=== PATIENT | male | born 1950 | race African-American/Black ===

== ENCOUNTER 2020-11-10 15:11 | Inpatient (IN) | payer OTHER, MEDICARE ==
[~2020-11-10] VITALS: Ht 182.9 cm; Wt 88.5 kg
[2020-11-10] MEDS ORDERED: ACETAMINOPHEN 325MG TABLET PO STA ×2 (15:38)
[2020-11-10] MEDS ORDERED: SODIUM CHLORIDE 0.9% 1000ML BAG (SEPSIS BOLUS) IV ONE (15:45)
[2020-11-10] MEDS ORDERED: AZITHROMYCIN 500 MG in DEXT 5% WATER 250 ML IV ONE (15:45)
[2020-11-10] MEDS ORDERED: CEFTRIAXONE 1 G PREMIX 50 ML IV ONE (15:45)
[2020-11-10 15:59] LABS: MEAN CORPUSCULAR HEMOGLOBIN 31.4 pg (28.0-32.0); MEAN CORPUSCULAR VOLUME 92.6 fL (80.0-94.0); MEAN PLATELET VOLUME 10.9 fl (7.4-10.4); RED BLOOD CELL COUNT 2.03 mill/uL (4.7-6.1); RED CELL DISTRIBUTION WIDTH 19.1 % (11.6-14.6)
[2020-11-10 16:04] LABS: CHLORIDE 108 mEq/L (98-107)
[2020-11-10 16:09] LABS: HEMATOCRIT. 18.8 % (42.0-52.0); HEMOGLOBIN. 6.4 g/dL (14.0-18.0); PLATELET 9 x1000/uL (130-400)
[2020-11-10 16:13] LABS: CREATINE KINASE 520 IU/L (39-308)
[2020-11-10 16:44] LABS: D-DIMER 8.01 mg/L FEU (<0.50); INR 1.4; PROTHROMBIN TIME 15.1 sec (9.6-11.0)
[2020-11-10 16:47] LABS: C REACTIVE PROTEIN QUANT > 190.0 mg/L (0.0-3.0)
[2020-11-10 17:09] LABS: PLATELET ESTIMATE MARKEDLY DECREASED
[2020-11-10] MEDS ORDERED: PHENYLEPHRINE 50 MG in DEXT 5% WATER 245 ML IV PRN (17:15)
[2020-11-10] MEDS ORDERED: DILTIAZEM HCL 5MG/ML 5ML VIAL IV ONE (17:15)
[2020-11-10 17:29] LABS: BG BASE EXCESS -6.3 mmol/L (-2.0-2.0); BG CARBOXYHEMOGLOBIN 0.8 % (0.5-1.5); BG DEOXYHEMOGLOBIN 1.1 % (0.0-5.0); BG FRACTION INSPIRED OXYGEN 100; BG HCO3 ACT 16.5 mmol/L (22.0-26.0); BG METHEMOGLOBIN 0.5 % (0.0-1.5); BG OXYGEN SATURATION 98.9 % (92.0-98.5); BG OXYHEMOGLOBIN 97.6 % (94.0-97.0); BG PCO2 22.1 mmHg (35.0-45.0); BG PH 7.492 (7.350-7.450); BG PO2 176.8 mmHg (75.0-100.0); BG SAMPLE SITE RIGHT RADIAL; BG TOTAL HEMOGLOBIN 5.6 g/dL (12.0-18.0); BG VENT MODE HIGH FLOW
[2020-11-10] MEDS ORDERED: DILTIAZEM HCL 125 MG in DEXT 5% WATER 100 ML IV ONE (17:45)
[2020-11-10] MEDS ORDERED: DILTIAZEM HCL 125 MG in DEXT 5% WATER 100 ML IV NR (18:00)
[2020-11-10 18:44] LABS: CLARITY URINE CLOUDY (CLEAR); COLOR URINE DARK YELLOW (YELLOW); KETONES URINE TRACE (NEGATIVE); LEUKOCYTE ESTERASE URINE NEGATIVE (NEGATIVE); NITRITE URINE NEGATIVE (NEGATIVE); OCCULT BLOOD URINE 3+ (NEGATIVE); PROTEIN URINE 3+ (NEGATIVE); SPECIFIC GRAVITY URINE 1.025 (1.005-1.030)
[2020-11-10] MEDS ORDERED: DEXAMETHASONE 4MG/ML 1ML VIAL IV ONE (19:15)
[2020-11-10] MEDS ORDERED: MORPHINE SULFATE 4 MG/ML CPJ (NOT FOR IM USE) IV ONE (20:00)
[2020-11-10] MEDS ORDERED: IPRATROPIUM/ALBUTEROL 0.5-3(2.5)MG/3ML NEB NEB PRN (22:00)
[2020-11-10] MEDS ORDERED: MAGNESIUM/ALUMINUM HYDROXIDE/SIMETHICONE 30ML UDC PO PRN (22:00)
[2020-11-10] MEDS ORDERED: MORPHINE SULFATE 2 MG/ML CPJ (NOT FOR IM USE) IV PRN (22:00)
[2020-11-10] MEDS ORDERED: ONDANSETRON HCL 4MG/2ML INJ IV PRN (22:00)
[2020-11-10] MEDS ORDERED: ACETAMINOPHEN 325MG TABLET PO PRN (22:00)
[2020-11-10] MEDS ORDERED: DOCUSATE SODIUM 100MG CAPSULE PO PRN (22:00)
[2020-11-10] MEDS ORDERED: DIPHENHYDRAMINE 50MG/ML VIAL IV PRN (22:00)
[2020-11-10] MEDS ORDERED: GUAIFENESIN 200MG/10ML SUGAR FREE UDC PO PRN (22:00)
[2020-11-10] MEDS ORDERED: CLONIDINE 0.1MG TABLET PO PRN (22:00)
[2020-11-10] MEDS ORDERED: HYDROCODONE/ACETAMINOPHEN 5/325MG TABLET PO PRN (22:00)
[2020-11-10] MEDS ORDERED: NA PHOS,M-B/NA PHOS,DI-BA ENEMA 118ML PR PRN (22:00)
[2020-11-10] MEDS ORDERED: NALOXONE HCL 0.4MG/ML VIAL IV PRN (22:00)
[2020-11-10] MEDS ORDERED: IOHEXOL-350 100 ML BOTTLE ONE (23:27)
[2020-11-11] VITALS (35 sets, daily range): BP systolic 60–124; BP diastolic 49–75
[2020-11-11 00:06] LABS: CHLORIDE 111 mEq/L (98-107)
[2020-11-11] MEDS: DEXT 5%/0.45% NACL 1000ML 1,000 ML IV SCH ×2 (02:59→14:40)
[2020-11-11 06:12] LABS: MEAN CORPUSCULAR HEMOGLOBIN 31.5 pg (28.0-32.0); MEAN CORPUSCULAR VOLUME 91.4 fL (80.0-94.0); MEAN PLATELET VOLUME 11.8 fl (7.4-10.4); RED BLOOD CELL COUNT 1.83 mill/uL (4.7-6.1); RED CELL DISTRIBUTION WIDTH 19.1 % (11.6-14.6)
[2020-11-11 06:19] LABS: CHLORIDE 109 mEq/L (98-107)
[2020-11-11 06:28] LABS: LDL CHOLESTEROL 29 mg/dL (5-100)
[2020-11-11 06:29] LABS: HDL CHOLESTEROL 24 mg/dL (40-59); T4 FREE 1.22 ng/dL (0.76-1.46)
[2020-11-11 06:42] LABS: HEMATOCRIT. 16.7 % (42.0-52.0); HEMOGLOBIN. 5.7 g/dL (14.0-18.0); PLATELET 6 x1000/uL (130-400)
[2020-11-11] MEDS ORDERED: PHENYLEPHRINE 50 MG in DEXT 5% WATER 245 ML IV STA (07:48)
[2020-11-11] MEDS: AMIODARONE HCL 900 MG in DEXT 5% WATER 500 ML IV SCH (08:20)
[2020-11-11] MEDS: PHENYLEPHRINE 50 MG in DEXTROSE 5% WATER 250 ML IV PRN (08:20)
[2020-11-11] MEDS ORDERED: GUAIFENESIN-DM 200MG-20MG/10ML UDC PO PRN (12:45)
[2020-11-11] MEDS: IPRATROPIUM BROMIDE (0.02%) 0.5MG/2.5ML NEB HHN SCH ×2 (13:00→20:54)
[2020-11-11] MEDS ORDERED: SODIUM CHLORIDE 10% FOR INH 15ML VIAL NEB INH NR (13:30)
[2020-11-11 16:36] LABS: PLATELET ESTIMATE MARKEDLY DECREASED
[2020-11-11 18:42] LABS: HEMATOCRIT 22.3 % (42.0-52.0); HEMOGLOBIN 7.7 g/dL (14.0-18.0)
[2020-11-11] MEDS: AZITHROMYCIN 500 MG in DEXT 5% WATER 250 ML IV SCH (18:45)
[2020-11-11 18:47] LABS: BG CARBOXYHEMOGLOBIN 0.3 % (0.5-1.5); BG FRACTION INSPIRED OXYGEN 44; BG HCO3 ACT 19.7 mmol/L (22.0-26.0); BG METHEMOGLOBIN 0.5 % (0.0-1.5); BG OXYGEN SATURATION 91.9 % (92.0-98.5); BG OXYHEMOGLOBIN 91.2 % (94.0-97.0); BG PCO2 26.9 mmHg (35.0-45.0); BG PH 7.483 (7.350-7.450); BG PO2 63.8 mmHg (75.0-100.0); BG SAMPLE SITE RIGHT BRACHIAL; BG TOTAL HEMOGLOBIN 8.5 g/dL (12.0-18.0); BG VENT MODE NASAL CANNULA
[2020-11-11 18:57] LABS: CREATINE KINASE MB FRACTION 4.7 ng/mL (0.5-3.6)
[2020-11-11 19:47] LABS: HEPATITIS B SURFACE ANTIGEN NEGATIVE
[2020-11-11] MEDS: MORPHINE SULFATE 4 MG/ML CPJ (NOT FOR IM USE) IV PRN (19:47)
[2020-11-12] VITALS (61 sets, daily range): BP systolic 95–174; BP diastolic 48–104
[2020-11-12] MEDS: IPRATROPIUM BROMIDE (0.02%) 0.5MG/2.5ML NEB HHN SCH ×4 (02:36→21:14)
[2020-11-12] MEDS: AMIODARONE HCL 900 MG in DEXT 5% WATER 500 ML IV SCH (05:34)
[2020-11-12 07:27] LABS: CREATINE KINASE MB FRACTION 1.9 ng/mL (0.5-3.6)
[2020-11-12 07:44] LABS: CHLORIDE 109 mEq/L (98-107)
[2020-11-12] MEDS: MORPHINE SULFATE 4 MG/ML CPJ (NOT FOR IM USE) IV PRN (07:48)
[2020-11-12 07:50] LABS: HEMATOCRIT. 22.2 % (42.0-52.0); HEMOGLOBIN. 7.8 g/dL (14.0-18.0); MEAN CORPUSCULAR HEMOGLOBIN 31.8 pg (28.0-32.0); MEAN PLATELET VOLUME 10.6 fl (7.4-10.4); RED BLOOD CELL COUNT 2.44 mill/uL (4.7-6.1); RED CELL DISTRIBUTION WIDTH 16.1 % (11.6-14.6)
[2020-11-12 07:54] LABS: PLATELET 7 x1000/uL (130-400)
[2020-11-12] MEDS ORDERED: AMIODARONE HCL 900 MG in DEXT 5% WATER 482 ML IV SCH (10:00)
[2020-11-12] MEDS: DEXT 5%/0.45% NACL 1000ML 1,000 ML IV SCH ×2 (10:24→23:28)
[2020-11-12] MEDS: AZITHROMYCIN 500 MG in DEXT 5% WATER 250 ML IV SCH (15:12)
[2020-11-12 16:16] LABS: PLATELET ESTIMATE MARKEDLY DECREASED
[2020-11-12] MEDS: LORAZEPAM 2MG/ML CPJ IV PRN (23:24)
[2020-11-13] VITALS (25 sets, daily range): BP systolic 58–129; BP diastolic 21–93
[2020-11-13 00:13] LABS: BG BASE EXCESS -2.9 mmol/L (-2.0-2.0); BG CARBOXYHEMOGLOBIN 1.1 % (0.5-1.5); BG DEOXYHEMOGLOBIN 26.3 % (0.0-5.0); BG FRACTION INSPIRED OXYGEN 40; BG HCO3 ACT 20.9 mmol/L (22.0-26.0); BG METHEMOGLOBIN 0.4 % (0.0-1.5); BG OXYGEN SATURATION 73.3 % (92.0-98.5); BG OXYHEMOGLOBIN 72.2 % (94.0-97.0); BG PCO2 31.8 mmHg (35.0-45.0); BG PH 7.436 (7.350-7.450); BG PO2 41.7 mmHg (75.0-100.0); BG SAMPLE SITE LEFT RADIAL; BG TOTAL HEMOGLOBIN 7.4 g/dL (12.0-18.0); BG VENT MODE NASAL CANNULA
[2020-11-13] MEDS: IPRATROPIUM BROMIDE (0.02%) 0.5MG/2.5ML NEB HHN SCH ×4 (01:44→17:23)
[2020-11-13] MEDS ORDERED: DIGOXIN 500MCG/2ML AMP IV SCH ×3 (02:15→08:45)
[2020-11-13 04:19] LABS: CHLORIDE 110 mEq/L (98-107)
[2020-11-13 04:27] LABS: HEMATOCRIT. 22.9 % (42.0-52.0); HEMOGLOBIN. 7.7 g/dL (14.0-18.0); MEAN CORPUSCULAR HEMOGLOBIN 31.9 pg (28.0-32.0); MEAN CORPUSCULAR VOLUME 95.1 fL (80.0-94.0); MEAN PLATELET VOLUME 12.3 fl (7.4-10.4); RED BLOOD CELL COUNT 2.41 mill/uL (4.7-6.1); RED CELL DISTRIBUTION WIDTH 17.3 % (11.6-14.6)
[2020-11-13] MEDS ORDERED: NALOXONE HCL 1 MG/ML 2ML VIAL IV ONE (04:30)
[2020-11-13] MEDS ORDERED: FLUMAZENIL 0.1 MG/ML 5ML VIAL IV ONE (04:30)
[2020-11-13 04:46] LABS: BG BASE EXCESS -2.3 mmol/L (-2.0-2.0); BG CARBOXYHEMOGLOBIN 0.7 % (0.5-1.5); BG DEOXYHEMOGLOBIN 16.6 % (0.0-5.0); BG FRACTION INSPIRED OXYGEN 100; BG HCO3 ACT 21.8 mmol/L (22.0-26.0); BG METHEMOGLOBIN 0.2 % (0.0-1.5); BG OXYGEN SATURATION 83.2 % (92.0-98.5); BG OXYHEMOGLOBIN 82.5 % (94.0-97.0); BG PCO2 34.4 mmHg (35.0-45.0); BG PH 7.419 (7.350-7.450); BG PO2 50.7 mmHg (75.0-100.0); BG SAMPLE SITE RIGHT RADIAL; BG TOTAL HEMOGLOBIN 8.9 g/dL (12.0-18.0); BG VENT MODE MASK - NRB
[2020-11-13 04:58] LABS: PLATELET 8 x1000/uL (130-400)
[2020-11-13] MEDS ORDERED: VECURONIUM BROMIDE 10 MG/VIAL IV ONE (08:31)
[2020-11-13] MEDS ORDERED: ETOMIDATE 2MG/ML 10ML VIAL IV ONE (08:31)
[2020-11-13] MEDS: LORAZEPAM 2MG/ML CPJ IV PRN (08:52)
[2020-11-13 10:44] LABS: BG BASE EXCESS -1.8 mmol/L (-2.0-2.0); BG CARBOXYHEMOGLOBIN 0.3 % (0.5-1.5); BG DEOXYHEMOGLOBIN 1.4 % (0.0-5.0); BG FRACTION INSPIRED OXYGEN 100; BG HCO3 ACT 20.9 mmol/L (22.0-26.0); BG METHEMOGLOBIN 0.2 % (0.0-1.5); BG OXYGEN SATURATION 98.6 % (92.0-98.5); BG OXYHEMOGLOBIN 98.1 % (94.0-97.0); BG PCO2 27.7 mmHg (35.0-45.0); BG PH 7.496 (7.350-7.450); BG PO2 160.2 mmHg (75.0-100.0); BG SAMPLE SITE RIGHT RADIAL; BG TOTAL HEMOGLOBIN 7.9 g/dL (12.0-18.0); BG TOTAL RESPIRATORY RATE 48 b/min; BG VENT MODE MASK - BIPAP
[2020-11-13 13:08] LABS: PLATELET ESTIMATE MARKEDLY DECREASED
[2020-11-13] MEDS ORDERED: ACETAMINOPHEN 650MG SUPP PR PRN (13:30)
[2020-11-13] MEDS ORDERED: PROPOFOL 10MG/ML 100ML 100 ML IV PRN (15:45)
[2020-11-13] MEDS ORDERED: FENTANYL CITRATE/PF 2,500 MCG in SODIUM CHLORIDE 0.9% 200 ML IV PRN (15:45)
[2020-11-13] MEDS ORDERED: VANCOMYCIN 1,750 MG in DEXT 5% WATER 500 ML IV NR (16:30)
[2020-11-13 16:34] LABS: BG BASE EXCESS -9.6 mmol/L (-2.0-2.0); BG CARBOXYHEMOGLOBIN 0.4 % (0.5-1.5); BG FRACTION INSPIRED OXYGEN 100; BG HCO3 ACT 17.1 mmol/L (22.0-26.0); BG METHEMOGLOBIN 0.6 % (0.0-1.5); BG PCO2 41.9 mmHg (35.0-45.0); BG PH 7.228 (7.350-7.450); BG PO2 282.6 mmHg (75.0-100.0); BG SAMPLE SITE RIGHT RADIAL; BG TOTAL HEMOGLOBIN 6.1 g/dL (12.0-18.0); BG VENT MODE VENT - AC
[2020-11-13] MEDS ORDERED: SODIUM BICARBONATE 8.4% 1 MEQ/ML 50ML SYR IV NR (17:00)
[2020-11-13] MEDS ORDERED: DOPAMINE 800 MG IV ONE (17:19)
[2020-11-13] MEDS ORDERED: DOPAMINE 400MG/250ML PREMIX 250 ML IV ONE (17:20)
[2020-11-13] MEDS: DOPAMINE 400MG/250ML PREMIX 250 ML IV PRN ×2 (17:27→23:04)
[2020-11-13 19:03] LABS: HEMOGLOBIN 5.6 g/dL (14.0-18.0)
[2020-11-13 19:06] LABS: INR 1.4; PROTHROMBIN TIME 14.6 sec (9.6-11.0)
[2020-11-13] MEDS: DEXT 5%/0.45% NACL 1000ML 1,000 ML IV SCH (19:51)
[2020-11-13] MEDS: AZITHROMYCIN 500 MG in DEXT 5% WATER 250 ML IV SCH (20:22)
[2020-11-13] MEDS: MEROPENEM 1,000 MG in SODIUM CHLORIDE 0.9% 100 ML IV SCH ×2 (20:23→23:35)
[2020-11-13] MEDS: PHENYLEPHRINE 50 MG in DEXTROSE 5% WATER 250 ML IV PRN (21:18)
[2020-11-13] MEDS: NOREPINEPHRINE 32 MG in DEXT 5% WATER 218 ML IV PRN (23:59)
[2020-11-14] VITALS (36 sets, daily range): BP systolic 19–169; BP diastolic 8–76
[2020-11-14] MEDS ORDERED: SODIUM BICARBONATE 150 MEQ in DEXTROSE 5% WATER 1,000 ML IV SCH (00:20)
[2020-11-14 00:40] LABS: BG BASE EXCESS -22.2 mmol/L (-2.0-2.0); BG CARBOXYHEMOGLOBIN 0.3 % (0.5-1.5); BG FRACTION INSPIRED OXYGEN 100; BG HCO3 ACT 9.3 mmol/L (22.0-26.0); BG OXYGEN SATURATION 58.5 % (92.0-98.5); BG OXYHEMOGLOBIN 57.7 % (94.0-97.0); BG PCO2 52.4 mmHg (35.0-45.0); BG PH 6.866 (7.350-7.450); BG PO2 45.8 mmHg (75.0-100.0); BG SAMPLE SITE LEFT BRACHIAL; BG VENT MODE VENT - AC
[2020-11-14] MEDS ORDERED: SODIUM BICARBONATE 8.4% 1 MEQ/ML 50ML SYR IV ONE ×3 (01:06→08:48)
[2020-11-14] MEDS ORDERED: SODIUM BICARBONATE 8.4% 1 MEQ/ML 50ML SYR IV NR ×2 (01:15→10:30)
[2020-11-14] MEDS: IPRATROPIUM BROMIDE (0.02%) 0.5MG/2.5ML NEB HHN SCH ×2 (01:17→08:55)
[2020-11-14] MEDS: VASOPRESSIN 20 UNIT in SODIUM CHLORIDE 0.9% 99 ML IV PRN ×2 (01:33→08:44)
[2020-11-14 01:39] LABS: MEAN CORPUSCULAR VOLUME 101.7 fL (80.0-94.0); MEAN PLATELET VOLUME 7.6 fl (7.4-10.4); RED BLOOD CELL COUNT 1.86 mill/uL (4.7-6.1); RED CELL DISTRIBUTION WIDTH 16.1 % (11.6-14.6)
[2020-11-14 01:42] LABS: HEMATOCRIT. 18.9 % (42.0-52.0); HEMOGLOBIN. 5.9 g/dL (14.0-18.0)
[2020-11-14 01:43] LABS: PLATELET 18 x1000/uL (130-400)
[2020-11-14] MEDS: DOPAMINE 400MG/250ML PREMIX 250 ML IV PRN ×3 (01:47→09:13)
[2020-11-14] MEDS: PHENYLEPHRINE 50 MG in DEXTROSE 5% WATER 250 ML IV PRN ×2 (03:47→09:45)
[2020-11-14] MEDS ORDERED: VANCOMYCIN 1 G PREMIX 200 ML IV SCH (04:00)
[2020-11-14 06:00] LABS: HEMATOCRIT. 26.1 % (42.0-52.0); HEMOGLOBIN. 7.6 g/dL (14.0-18.0); MEAN CORPUSCULAR HEMOGLOBIN 31.2 pg (28.0-32.0); MEAN CORPUSCULAR VOLUME 106.5 fL (80.0-94.0); MEAN PLATELET VOLUME 7.6 fl (7.4-10.4); RED BLOOD CELL COUNT 2.45 mill/uL (4.7-6.1); RED CELL DISTRIBUTION WIDTH 16.8 % (11.6-14.6)
[2020-11-14 06:38] LABS: PLATELET 14 x1000/uL (130-400)
[2020-11-14] MEDS: NOREPINEPHRINE 32 MG in DEXT 5% WATER 218 ML IV PRN (07:00)
[2020-11-14 07:59] LABS: ATYPICAL LYMPHOCYTES 1; NUCLEATED RED BLOOD CELLS 1 /100 WBC; PLATELET ESTIMATE MARKEDLY DECREASED
[2020-11-14] MEDS ORDERED: SODIUM POLYSTYRENE SULFONATE 15 G/60 ML BOT PO SCH (08:45)
[2020-11-14] MEDS ORDERED: CALCIUM GLUCONATE 1GM PREMIX 50 ML IV ONE (08:45)
[2020-11-14] MEDS ORDERED: INSULIN REGULAR (HUMULIN R) 300UNITS/3ML VIAL IV ONE (08:45)
[2020-11-14] MEDS ORDERED: DEXTROSE 50% WATER 50ML SYRINGE IV ONE (08:45)
[2020-11-14] MEDS: DEXT 5%/0.45% NACL 1000ML 1,000 ML IV SCH (08:48)
[2020-11-14] MEDS ORDERED: EPINEPHRINE 0.1MG/ML (1:10,000) 10ML SYR ONE (08:48)
[2020-11-14] MEDS ORDERED: ATROPINE SULFATE 1MG/10ML SYR ONE (08:48)
[2020-11-14] MEDS ORDERED: CALCIUM CHLORIDE 1GM/10ML SYR IV ONE (08:48)
[2020-11-14] MEDS ORDERED: EPINEPHRINE 10 MG in SODIUM CHLORIDE 0.9% 240 ML IV PRN (09:30)
[2020-11-14] MEDS: MEROPENEM 1,000 MG in SODIUM CHLORIDE 0.9% 100 ML IV SCH (09:36)
[2020-11-14 09:40] LABS: BG BASE EXCESS -21.7 mmol/L (-2.0-2.0); BG CARBOXYHEMOGLOBIN 0.3 % (0.5-1.5); BG DEOXYHEMOGLOBIN 4.6 % (0.0-5.0); BG FRACTION INSPIRED OXYGEN 100; BG HCO3 ACT 8.3 mmol/L (22.0-26.0); BG METHEMOGLOBIN 0.8 % (0.0-1.5); BG OXYGEN SATURATION 95.3 % (92.0-98.5); BG OXYHEMOGLOBIN 94.3 % (94.0-97.0); BG PCO2 37.1 mmHg (35.0-45.0); BG PH 6.969 (7.350-7.450); BG PO2 113.8 mmHg (75.0-100.0); BG SAMPLE SITE ALINE; BG TOTAL HEMOGLOBIN 6.9 g/dL (12.0-18.0); BG VENT MODE VENT - AC
[2020-11-14] MEDS ORDERED: HYDROCORTISONE SOD SUCCINATE 100 MG/2 ML VIAL IV NR (09:45)
[2020-11-14] MEDS ORDERED: LACTATED RINGERS 500 ML IV ONE (10:00)
[2020-11-14 10:47] LABS: NUCLEATED RED BLOOD CELLS 2 /100 WBC
[2020-11-14] MEDS ORDERED: HYDROCORTISONE SOD SUCCINATE 100 MG/2 ML VIAL IV SCH (14:00)
[2020-11-14 14:04] LABS: ATYPICAL LYMPHOCYTES 1; PLATELET ESTIMATE MARKEDLY DECREASED
[2020-11-14] MEDS ORDERED: VANCOMYCIN 1 G PREMIX 200 ML IV NR (18:00)
== END 2020-11-14 11:23 | DRG 871 ==
LOC: ER 15:11 → MICUSO 19:10 → EDBEDREQ 19:13 → EDBEDREQSVC 19:13 → CVICU 11-11 14:40 → 5EST 11-12 16:50 → CVICU 11-13 15:30
PROVIDERS: ADMIT Internal Medicine; ATTEND Internal Medicine
PROC: 5A0935A Assistance with Respiratory Ventilation, Less than 24 Consecutive Hours, High Flow/Velocity Cannula (ICD-10-PCS; 2020-11-10)
PROC: 30233N1 Transfusion of Nonautologous Red Blood Cells into Peripheral Vein, Percutaneous Approach (ICD-10-PCS; 2020-11-11)
PROC: 0BH17EZ Insertion of Endotracheal Airway into Trachea, Via Natural or Artificial Opening (ICD-10-PCS; principal; 2020-11-13)
PROC: 5A1935Z Respiratory Ventilation, Less than 24 Consecutive Hours (ICD-10-PCS; 2020-11-13)
PROC: 5A12012 Performance of Cardiac Output, Single, Manual (ICD-10-PCS; 2020-11-13)
PROC: 02HV33Z Insertion of Infusion Device into Superior Vena Cava, Percutaneous Approach (ICD-10-PCS; 2020-11-13)
PROC: 30233R1 Transfusion of Nonautologous Platelets into Peripheral Vein, Percutaneous Approach (ICD-10-PCS; 2020-11-13)
PROC: 5A09357 Assistance with Respiratory Ventilation, Less than 24 Consecutive Hours, Continuous Positive Airway Pressure (ICD-10-PCS; 2020-11-13)
PROC: 5A12012 Performance of Cardiac Output, Single, Manual (ICD-10-PCS; 2020-11-14)
DX: A41.9 Sepsis, unspecified organism (principal); G93.41 Metabolic encephalopathy; J18.9 Pneumonia, unspecified organism; J96.01 Acute respiratory failure with hypoxia; N17.0 Acute kidney failure with tubular necrosis; R65.21 Severe sepsis with septic shock; S32.011A Stable burst fracture of first lumbar vertebra, initial encounter for closed fracture; D61.818 Other pancytopenia; D68.9 Coagulation defect, unspecified; E87.2 Acidosis; E86.0 Dehydration; E78.5 Hyperlipidemia, unspecified; I48.91 Unspecified atrial fibrillation; G90.8 Other disorders of autonomic nervous system; I50.9 Heart failure, unspecified; I11.0 Hypertensive heart disease with heart failure; I46.9 Cardiac arrest, cause unspecified; E87.5 Hyperkalemia; B19.20 Unspecified viral hepatitis C without hepatic coma; W18.39XA Other fall on same level, initial encounter; Y93.89 Activity, other specified; Z82.49 Family history of ischemic heart disease and other diseases of the circulatory system; Z83.49 Family history of other endocrine, nutritional and metabolic diseases; Z91.81 History of falling; Y92.89 Other specified places as the place of occurrence of the external cause; Y99.8 Other external cause status; Z20.822 Contact with and (suspected) exposure to COVID-19
CPT/HCPCS: 36415; 36600; 71045; 71275; 74174; 76700; 80048; 80053; 80061; 80202; 81003; 82140; 82375; 82550; 82553; 82728; 82805; 82962; 83036; 83605; 83615; 83735; 83880; 84145; 84439; 84443; 84478; 84484; 84550; 85014; 85018; 85025; 85379; 85384; 86140; 86703; 86705; 86709; 86803; 86850; 86900; 86920; 87070; 87340; 87426; 92950; 93005; 94003; 94640; 94660; 99291; J0282; J0456; J0461; J0610; J0696; J1100; J1160; J1265; J1720; J1815; J2060; J2185; J2270; J2310; J2370; J2704; J3370; J3490; J7030; J7040; J7050; J7060; J7070; J7131; P9016; Q9967; U0003; U0005; P9036